=== PATIENT | male | born 1950 | race Caucasian/White ===

== ENCOUNTER 2017-03-30 10:17 | Emergency (ER) | payer MEDICARE, OTHER ==
[~2017-03-30] VITALS: Ht 160 cm; Wt 64.0 kg
[2017-03-30] MEDS ORDERED: ACETAMINOPHEN 325MG TABLET PO ONE (11:15)
[2017-03-30] MEDS ORDERED: IBUPROFEN 400MG TABLET PO ONE (11:30)
[2017-03-30 12:47] VITALS: BP 145/79
== END 2017-03-30 12:48 | disposition home or self-care (01) ==
LOC: ER 10:17
DX: S02.5XXA Fracture of tooth (traumatic), initial encounter for closed fracture (principal); S00.03XA Contusion of scalp, initial encounter; M25.511 Pain in right shoulder; Y08.89XA Assault by other specified means, initial encounter; Y93.89 Activity, other specified; Y92.89 Other specified places as the place of occurrence of the external cause; Y99.8 Other external cause status
CPT/HCPCS: 70450; 70486; 73030; 99284